=== PATIENT | male | born 1965 | race Hispanic/Latino ===

== ENCOUNTER 2018-11-26 19:19 | Emergency (ER) | payer OTHER ==
[~2018-11-26] VITALS: Ht 175.3 cm; Wt 86.4 kg
[2018-11-26 19:19] VITALS: BP 157/90
[2018-11-26] MEDS ORDERED: CLAR5TAB7 PO (19:48)
== END 2018-11-26 20:06 | disposition home or self-care (01) ==
LOC: M ED 19:19
DX: H61.21 Impacted cerumen, right ear (principal); H74.8X3 Other specified disorders of middle ear and mastoid, bilateral

== ENCOUNTER 2021-10-13 07:26 | Observation (INO) | payer BC, SELFPAY ==
[~2021-10-13] VITALS: Ht 175.3 cm; Wt 98.5 kg
[~2021-10-13 07:26] MED LIST: CLAR5TAB7 PO
[2021-10-13 08:28] LABS: BASO % 0.2 % (0.0-1.0); HEMATOCRIT 42.9 % (42.0-52.0); HEMOGLOBIN 15.2 g/dl (13.5-17.5); LYMPH # 1.3 10^3/uL (1.5-5.0); LYMPH % 7.3 % (24.0-44.0); MEAN CORPUSCULAR HEMOGLOBIN 26.7 pg (27.0-33.0); MEAN CORPUSCULAR HGB CONC 35.4 g/dl (32.0-36.5); MEAN CORPUSCULAR VOLUME 75.4 fl (80.0-96.0); MONO # 1.4 10^3/uL (0.0-0.8); MONO % 7.5 % (2.0-8.0); NEUTROPHILS # 15.2 10^3/uL (1.5-8.5); NEUTROPHILS % 84.3 % (36.0-66.0); PLATELET COUNT, AUTOMATED 344 10^3/uL (150-450); RED BLOOD COUNT 5.69 10^6/uL (4.30-6.10)
[2021-10-13 08:49] LABS: ALBUMIN 4.1 GM/DL (3.2-5.2); BILIRUBIN,DIRECT 0.2 MG/DL (0.0-0.2); BILIRUBIN,TOTAL 0.8 MG/DL (0.2-1.0); CALCIUM LEVEL 9.6 MG/DL (8.5-10.1); CREATININE FOR GFR 1.77 MG/DL (0.70-1.30); GLOMERULAR FILTRATION RATE 42.9 (>56); POTASSIUM SERUM 3.8 MEQ/L (3.5-5.1); TOTAL PROTEIN 8.4 GM/DL (6.4-8.2)
[2021-10-13] MEDS ORDERED: SIME180C25 PO (09:14)
[2021-10-13] MEDS ORDERED: LISI40TA4 PO (09:14)
[2021-10-13] MEDS ORDERED: DRIS50003 PO (09:14)
[2021-10-13] MEDS ORDERED: LOPI600T PO (09:14)
[2021-10-13] MEDS ORDERED: HYDR-3490 PO (09:14)
[2021-10-13] MEDS ORDERED: NS 1,000 ML IV ONE (11:00)
[2021-10-13] MEDS ORDERED: cefTRIAXone SOD 1 GM in D5W MINI-BAG PLUS 50 ML IV ONE (11:00)
[2021-10-13] MEDS ORDERED: ACETAMINOPHEN TAB 650MG DOSE (2X325MG) PO PRN (11:45)
[2021-10-13] MEDS ORDERED: PERCOCET 5MG/325MG TAB PO PRN ×2 (11:50)
[2021-10-13] MEDS ORDERED: MULT-4 PO (12:18)
[2021-10-13] MEDS ORDERED: SIME80CH6 PO (12:18)
[2021-10-13] MEDS ORDERED: HOME MED LIST COMPLETE! XX SCH (12:20)
[2021-10-13] MEDS ORDERED: amLODIPine 5 MG TAB PO ONE (13:00)
[2021-10-13] MEDS ORDERED: cefTRIAXone SOD 1 GM in D5W MINI-BAG PLUS 50 ML IV SCH (13:00)
[2021-10-13] MEDS ORDERED: TAMSULOSIN 0.4 MG CAP PO ONE (13:00)
[2021-10-13] MEDS: NS 1,000 ML IV SCH ×2 (13:21→17:25)
[2021-10-13 14:00] VITALS: BP 170/110
[2021-10-13] MEDS ORDERED: **hydrALAZINE** 10 MG TAB PO ONE (15:10)
[2021-10-13 15:16] VITALS: BP 170/110
[2021-10-13 18:00] VITALS: BP 150/80
[2021-10-14 05:28] VITALS: BP 150/110
[2021-10-14] MEDS ORDERED: amLODIPine 5 MG TAB PO SCH (05:50)
[2021-10-14 06:17] LABS: HEMATOCRIT 38.2 % (42.0-52.0); HEMOGLOBIN 13.4 g/dl (13.5-17.5); MEAN CORPUSCULAR HEMOGLOBIN 26.7 pg (27.0-33.0); MEAN CORPUSCULAR HGB CONC 35.1 g/dl (32.0-36.5); MEAN CORPUSCULAR VOLUME 76.2 fl (80.0-96.0); PLATELET COUNT, AUTOMATED 300 10^3/uL (150-450); RED BLOOD COUNT 5.01 10^6/uL (4.30-6.10); WHITE BLOOD COUNT 9.5 10^3/uL (4.0-10.0)
[2021-10-14 06:40] LABS: BLOOD UREA NITROGEN 13 MG/DL (7-18); CALCIUM LEVEL 8.5 MG/DL (8.5-10.1); CARBON DIOXIDE LEVEL 29 MEQ/L (21-32); CHLORIDE LEVEL 110 MEQ/L (98-107); CREATININE FOR GFR 1.14 MG/DL (0.70-1.30); GLOMERULAR FILTRATION RATE > 60.0 (>56); GLUCOSE, FASTING 105 MG/DL (70-100); MAGNESIUM LEVEL 2.4 MG/DL (1.8-2.4); POTASSIUM SERUM 3.8 MEQ/L (3.5-5.1); SODIUM LEVEL 142 MEQ/L (136-145)
[2021-10-14 09:00] VITALS: BP 140/96
[2021-10-14] MEDS ORDERED: lisinopriL 40MG TAB PO SCH (09:00)
[2021-10-14] MEDS ORDERED: SIMETHICONE 80MG CHEW TAB PO SCH (09:00)
[2021-10-14] MEDS ORDERED: TAMSULOSIN 0.4 MG CAP PO SCH (09:00)
[2021-10-14] MEDS ORDERED: hydroCHLOROthiazide 12.5 MG CAPSULE PO SCH (09:00)
[2021-10-14] MEDS ORDERED: FLOM0.4C39 PO (09:49)
[2021-10-14] MEDS ORDERED: CIPR250T3 PO (09:49)
[2021-10-14] MEDS ORDERED: cefTRIAXone SOD 1 GM in D5W MINI-BAG PLUS 50 ML IV SCH (11:00)
== END 2021-10-14 11:16 | disposition home or self-care (01) ==
LOC: M ED 07:26 → M ED INP 11:45 → ENRESERVTM 13:20 → ENRESERVDT 13:20 → M MSPAV 14:21
PROVIDERS: ADMIT Family Medicine; ATTEND Family Medicine
DX: N17.9 Acute kidney failure, unspecified (principal); N13.2 Hydronephrosis with renal and ureteral calculous obstruction; R36.1 Hematospermia; I10 Essential (primary) hypertension; E78.5 Hyperlipidemia, unspecified; Z79.899 Other long term (current) drug therapy
CPT/HCPCS: 36415; 74018; 74176; 80048; 80053; 81001; 82248; 83605; 83690; 83735; 85025; 85027; 87040; 87086; 87426; 96361; 96365; 96366; 96375; 99284; J0696

== ENCOUNTER → 2021-10-24 | Outpatient (CLI) | payer BC ==
[~2021-10-24] MED LIST changes: +CIPR250T3 PO; +DRIS50003 PO; +FLOM0.4C39 PO; +HYDR-3490 PO; +LISI40TA4 PO; +LOPI600T PO; +MULT-4 PO; +SIME180C25 PO; +SIME80CH6 PO
== END ==
LOC: M RAD 14:59
PROVIDERS: ATTEND Physician Assistant
DX: N20.0 Calculus of kidney (principal)

== ENCOUNTER 2021-10-31 03:02 | Emergency (ER) | payer BC ==
[~2021-10-31] VITALS: Ht 175.3 cm; Wt 97.7 kg
[2021-10-31 04:10] LABS: APPEARANCE, URINE CLEAR (CLEAR); BACTERIA, URINE AUTO NEGATIVE (NEGATIVE); BILIRUBIN, URINE AUTO NEGATIVE (NEGATIVE); BLOOD, URINE BLOOD 1+ (NEGATIVE); COLOR, URINE YELLOW (YELLOW); GLUCOSE, URINE (UA) AUTO NEGATIVE (NEGATIVE); KETONE, URINE AUTO NEGATIVE (NEGATIVE); LEUKOCYTE ESTERASE, URINE AUTO 1+ (NEGATIVE); MUCUS, URINE SMALL (NEGATIVE); NITRITE, URINE AUTO NEGATIVE (NEGATIVE); PROTEIN, URINE AUTO 1+ mg/dL (NEGATIVE); RBC, URINE AUTO 0 /HPF (0-3); SPECIFIC GRAVITY URINE AUTO 1.019 (1.002-1.035); SQUAMOUS EPITHELIAL CELL UR AU 0 /HPF (0-6); UROBILINOGEN, URINE AUTO 0.2 mg/dL (0.0-2.0); WBC, URINE AUTO 3 /HPF (0-3)
[2021-10-31] MEDS ORDERED: MORPHINE 4 MG/ML 1ML VIAL/SYRINGE (J2270) IV ONE (05:20)
[2021-10-31] MEDS ORDERED: NS 1,000 ML IV ONE (05:20)
[2021-10-31] MEDS ORDERED: ONDANSETRON 4MG/2ML VIAL IV ONE (05:20)
[2021-10-31 05:59] LABS: BASO % 0.3 % (0.0-1.0); EOS # 0.1 10^3/uL (0.0-0.5); EOS % 1.1 % (0.0-3.0); HEMATOCRIT 37.8 % (42.0-52.0); HEMOGLOBIN 13.6 g/dl (13.5-17.5); LYMPH # 1.6 10^3/uL (1.5-5.0); MEAN CORPUSCULAR HEMOGLOBIN 27.2 pg (27.0-33.0); MEAN CORPUSCULAR VOLUME 75.6 fl (80.0-96.0); MONO # 1.1 10^3/uL (0.0-0.8); NEUTROPHILS # 10.2 10^3/uL (1.5-8.5); NEUTROPHILS % 78.2 % (36.0-66.0); PLATELET COUNT, AUTOMATED 148 10^3/uL (150-450); WHITE BLOOD COUNT 13.1 10^3/uL (4.0-10.0)
[2021-10-31 06:30] LABS: ALBUMIN 3.7 GM/DL (3.2-5.2); ALT/SGPT 183 U/L (12-78); BILIRUBIN,DIRECT < 0.1 MG/DL (0.0-0.2); BILIRUBIN,TOTAL 0.6 MG/DL (0.2-1.0); BLOOD UREA NITROGEN 18 MG/DL (7-18); CALCIUM LEVEL 8.8 MG/DL (8.5-10.1); CARBON DIOXIDE LEVEL 25 MEQ/L (21-32); CHLORIDE LEVEL 106 MEQ/L (98-107); CREATININE FOR GFR 1.32 MG/DL (0.70-1.30); GLOMERULAR FILTRATION RATE > 60.0 (>56); GLUCOSE, FASTING 118 MG/DL (70-100); LIPASE 117 U/L (73-393); POTASSIUM SERUM 4.1 MEQ/L (3.5-5.1); SODIUM LEVEL 141 MEQ/L (136-145); TOTAL PROTEIN 7.2 GM/DL (6.4-8.2)
[2021-10-31] MEDS ORDERED: lisinopriL 40MG TAB PO ONE (06:40)
[2021-10-31] MEDS ORDERED: KETOROLAC 30 MG/ML 1ML VIAL IV ONE (06:40)
[2021-10-31] MEDS ORDERED: CIPR250T3 PO (08:43)
[2021-10-31] MEDS ORDERED: KETO10TAB PO (08:43)
[2021-10-31] MEDS ORDERED: ONDA4TAB6 PO (08:43)
[2021-10-31] MEDS ORDERED: OXYC1TAB23 PO (08:43)
[2021-10-31 08:48] VITALS: BP 166/104
== END 2021-10-31 09:51 | disposition home or self-care (01) ==
LOC: M ED 03:02
DX: N20.1 Calculus of ureter (principal); R10.9 Unspecified abdominal pain; I10 Essential (primary) hypertension; E78.5 Hyperlipidemia, unspecified; Z87.442 Personal history of urinary calculi; Z79.811 Long term (current) use of aromatase inhibitors; Z79.899 Other long term (current) drug therapy
CPT/HCPCS: 74176; 80048; 80076; 81001; 83690; 85025; 93041; 96374; 96375; 99285; J1885; J2270; J2405

== ENCOUNTER → 2021-11-08 | Outpatient (CLI) | payer BC ==
[~2021-11-08] MED LIST changes: +KETO10TAB PO; +ONDA4TAB6 PO; +OXYC1TAB23 PO
== END ==
LOC: M PLALAB 15:31 → M PLAIMG 15:31
PROVIDERS: ATTEND Physician Assistant
DX: N20.0 Calculus of kidney (principal)

== ENCOUNTER 2023-10-14 11:05 | Emergency (ER) | payer OTHER ==
[~2023-10-14] VITALS: Ht 175.3 cm; Wt 104.0 kg
[2023-10-14 11:06] VITALS: TEMP 97.8
[2023-10-14 14:13] LABS: BASO # 0.1 10^3/uL (0.0-0.2); BASO % 0.5 % (0.0-1.0); EOS # 0.1 10^3/uL (0.0-0.5); EOS % 0.9 % (0.0-3.0); HEMATOCRIT 39.3 % (42.0-52.0); HEMOGLOBIN 14.1 g/dl (13.5-17.5); LYMPH # 1.9 10^3/uL (1.5-5.0); LYMPH % 19.6 % (24.0-44.0); MEAN CORPUSCULAR HEMOGLOBIN 27.2 pg (27.0-33.0); MEAN CORPUSCULAR HGB CONC 35.9 g/dl (32.0-36.5); MEAN CORPUSCULAR VOLUME 75.9 fl (80.0-96.0); MONO # 0.9 10^3/uL (0.0-0.8); MONO % 9.5 % (2.0-8.0); NEUTROPHILS # 6.8 10^3/uL (1.5-8.5); NEUTROPHILS % 69.2 % (36.0-66.0); PLATELET COUNT, AUTOMATED 336 10^3/uL (150-450); RED BLOOD COUNT 5.18 10^6/uL (4.30-6.10); WHITE BLOOD COUNT 9.9 10^3/uL (4.0-10.0)
[2023-10-14] MEDS: BOOSTRIX VACCINE (TETANUS/DIPHTH/ACEL. PERTUSSIS) 0.5ML SYR IM ONE (14:25)
[2023-10-14 14:38] LABS: ERYTHROCYTE SEDIMENTATION RATE 22 mm/hr (0-20)
[2023-10-14] MEDS: AMPICILLIN SOD/SULBACTAM SOD 3 GM in D5W MINI-BAG PLUS 100 ML IV ONE (15:25)
[2023-10-14] MEDS ORDERED: AMOX875T2 PO (15:46)
[2023-10-14 15:48] VITALS: O2SAT 98
[2023-10-14 15:57] VITALS: BP 173/115
[2023-10-14] MEDS: lisinopriL 40MG TAB PO ONE (15:57)
[2023-10-14] MEDS: hydroCHLOROthiazide 12.5 MG CAPSULE PO ONE (15:57)
[2023-10-14 16:04] VITALS: BP 166/110
== END 2023-10-14 16:33 | disposition home or self-care (01) ==
LOC: M ED 11:05
DX: S81.842A Puncture wound with foreign body, left lower leg, initial encounter (principal); W54.0XXA Bitten by dog, initial encounter; I10 Essential (primary) hypertension; Z87.442 Personal history of urinary calculi; Z79.2 Long term (current) use of antibiotics; Z79.811 Long term (current) use of aromatase inhibitors; Z79.899 Other long term (current) drug therapy; Z23 Encounter for immunization
CPT/HCPCS: 83605; 85025; 85652; 86140; 87040; 90471; 90715; 96365; 99284; J0295